=== PATIENT | female | born 1975 | race Caucasian/White ===

== ENCOUNTER → 2022-12-16 10:04 | Outpatient (CLI) | payer OTHER, SELFPAY ==
--- NOTE | ~2022-12-16 | MM_ITS ---
EXAMINATION: MM screening [facility] w rosetta HISTORY: Screening mammogram TECHNIQUE: Craniocaudal and mediolateral oblique 3-D tomosynthesis images were obtained and synthetic 2-D images were generated. CAD analysis was submitted and interpreted. COMPARISON: No prior mammogram is available for comparison at this institution. BREAST PARENCHYMAL COMPOSITION: The breasts are heterogeneously dense, which may obscure small masses . FINDINGS: There is no evidence of suspicious mass, calcification, or architectural distortion to sugg est malignancy in either breast. There has been no suspicious interval change. IMPRESSION: 1. No mammographic evidence of malignancy. 2. Recommend routine screening mammography in one year. BI-RADS Category 1: Negative Reviewed, dictated and finalized at location A.
== END ==
PROVIDERS: PCP Family Medicine; Visit Provider Obstetrics & Gynecology
DX: Z12.31 Encounter for screening mammogram for malignant neoplasm of breast (principal)
CPT/HCPCS: 77063; 77067

== ENCOUNTER 2023-05-12 10:59 | Emergency (ER) | payer OTHER, SELFPAY ==
--- NOTE | ~2023-05-12 | CT_ITS ---
EXAMINATION: CT abdomen pelvis w con DATE: 05/12/2023 12:03 INDICATION: Left lower quadrant abdominal pain TECHNIQUE: Computed tomography (CT) of the abdomen and pelvis was performed with 100 mL Omnipaque-350 intravenous contrast. Automated exposure control and iterative reconstruction technique were employe d. The dose-length product was 943.94 mGy-cm. COMPARISON: None FINDINGS: Lung bases are clear. Heart size is normal. No pericardial or pleural effusion. Couple hepatic cysts the larger measuring 1 cm. Gallbladder, spleen, pancreas, bilateral adrenal glands and kidneys are no rmal. Small bowel and appendix are normal. There are scattered colonic diverticula with inflammatory stranding surrounding a diverticulum at the distal descending colon consistent with diverticulitis. T here is a small amount of nonloculated retroperitoneal fluid tracking craniocaudally posterior to the descending colon in the lateral left pararenal space. No abscess or extraluminal gas. Trace free flu id in the cul-de-sac. Bladder is normal. The uterus is not identified and has likely been surgically resected. No pathologically enlarged abdominal or pelvic lymphadenopathy. Severe spondylosis at the l umbosacral junction with additional mild degenerative skeletal changes scattered throughout the spine and pelvis. IMPRESSION: 1. Radiographically uncomplicated diverticulitis at the distal descending colon. Reviewed, dictated and finalized at location A. IMPRESSION: 1. Radiographically uncomplicated diverticulitis at the distal descending colon .
[2023-05-12 11:01] VITALS: BP 176/116; PULSE 114; RESP 20; TEMP 36.8; O2SAT 99
[2023-05-12 11:26] LABS: Basophils Absolute Auto 0.1 K/mm3 (0.0-0.1); Basophils Percent Auto 0.4 % (0.2-1.2); Eosinophils Absolute Auto 0.4 K/mm3 (0-0.3); Eosinophils Percent Auto 2.7 % (0-4.4); Hematocrit 43.4 % (37.0-47.0); Hemoglobin 14.8 g/dL (12.0-15.0); Immature Granulocyte Absolute 0.08 K/mm3 (0.00-0.031); Immature Granulocyte Percent A 0.5 % (0-0.5); Lymphocytes Percent Auto 16.1 % (18.3-44.2); Mean Corpuscular HGB Conc 34.1 g/dl (32-36); Mean Corpuscular Hemoglobin 32.5 pg (26-34); Mean Corpuscular Volume 95.4 fl (80-100); Mean Platelet Volume 9.4 fl (7.4-10.4); Monocytes Percent Auto 6.6 % (2.6-8.5); Neutrophils Percent Auto 73.7 % (45.5-73.1); Platelet Count Result 283 k/mm3 (150-375); Red Blood Count 4.55 M/mm3 (4.2-5.4); Red Cell Distribution Width 12.2 % (11.5-14.5); White Blood Count 14.9 K/mm3 (4.5-10.0)
[2023-05-12 11:37] LABS: Alanine Aminotransferase 45 U/L (6-35); Albumin Level 4.8 g/dL (3.5-5.1); Alkaline Phosphatase 75 U/L (38-126); Anion Gap 11 mmol/L (8-16); Aspartate Amino Transferase 29 U/L (14-36); Bilirubin,Total 0.6 mg/dL (0.2-1.3); Blood Urea Nitrogen 11 mg/dL (7-17); Calcium 9.5 mg/dL (8.4-10.2); Carbon Dioxide 25 mmol/L (22-30); Chloride 101 mmol/L (98-107); Estimated CRCL calculation 99 ml/min; Estimated Glomerular Filt Rate > 60; Glucose 115 mg/dL (65-110); Lipase 58 U/L (23-300); Sodium 137 mmol/L (137-145)
[2023-05-12] MEDS: ONDANSETRON INJ 4 MG/2 ML VIAL IV PUSH (11:43)
[2023-05-12] MEDS: MORPHINE SULFATE (*CRX) 4 MG/ML INJ IV PUSH (11:43)
--- NOTE | 2023-05-12 12:05 | ED.ABDPAIN ---
HPI - Abdominal Pain General Chief Complaint: Abdominal Pain Stated Complaint: abd pain Time Seen by Provider: 05/12/23 11:21 History of Present Illness HPI narrative: Patient is a 47-year-old female who presents to the ER with left lower quadrant abdominal pain. Progressive in nature for the last 2 days. No diarrhea or sense of constipation. No nausea or vomiting. No known injury. No history of diverticulitis. No urinary frequency urgency or dysuria. Pain is worsened with physical movements and better with rest. Related Data Allergies Allergy/AdvReac Type Severity Reaction Status Date / Time cat dander Allergy Severe Hives Verified 05/12/23 11:24 dog dander Allergy Severe Rash Verified 05/12/23 11:24 Review of Systems Review of Systems: All systems reviewed & are unremarkable except as noted in HPI and below Constitutional: Constitutional: Denies chills, Denies fatigue and Denies fever(s) ENT: Denies nasal congestion and Denies sore throat Respiratory: Respiratory: Denies cough, Denies dyspnea and Denies wheezing Gastrointestinal: Gastrointestinal: Reports abdominal pain, Denies constipation, Denies diarrhea, Denies nausea and Denies vomiting Genitourinary: Genitourinary: Reports no additional female genitourinary complaints Musculoskeletal: Musculoskeletal: Reports no additional musculoskeletal complaints PMF Past Medical History Medical History BMI 30.0-30.9,adult BMI 31.0-31.9,adult BMI 33.0-33.9,adult COVID-19 Screening for breast cancer Surgical History Surgical History History of hysterectomy (~04/23/04) Family History Family History Grandparent Hypertension Alcohol abuse Father Blind Alcohol abuse Mother Lung cancer Hypertension Alcohol abuse Sibling Hypertension Social History Social History Smoking packs per day: 0.5 Smoking cigarettes per day: 10.0 Years smoked: 28 Smoking pack-years: 14.00 Smoking status: Current every day smoker Tobacco type: cigarettes (1/2 -1 ppd using nicotine lozenges to try to quit) Second hand tobacco smoke exposure: Yes Alcohol intake: current Drinks per week: 2 Substance use: never Substance use type: does not use Living arrangements: with family Additional living arrangements comments: donell Occupation/Education: occupation 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 HEAD: Normocephalic, atraumatic. ENT: Mucous membranes moist. CHEST: Clear to auscultation. No respiratory distress. HEART: Regular rate and rhythm. Normal peripheral pulses. ABDOMEN: Soft, left lower quadrant tenderness with guarding, nondistended, normal active bowel sounds. EXTREMITIES: Normal range of motion. No edema. SKIN: Warm, dry, no rash. NEURO: N Alert and oriented x3. PSYCH: Normal mood and affect. Course Course Emergency Course: Patient resting comfortably. Educated on lab and imaging results. Discussed outpatient treatment plan with oral antibiotics. Symptoms felt to be related to diverticulitis and not her urine specimen but antibiotic should be able to help treat that as well. Vital Signs Vital signs: Vital Signs Temperature 98.3 F 05/12/23 11:01 Pulse Rate 114 H 05/12/23 11:01 Respiratory Rate 20 05/12/23 11:01 Blood Pressure 176/116 H 05/12/23 11:01 Pulse Oximetry 99 05/12/23 11:01 Oxygen Delivery Room Air 05/12/23 11:01 Temperature 98.3 F 05/12/23 11:01 Pulse Ra
[2023-05-12 12:18] LABS: Appearance Urine Cloudy (Clear); Bacteria Urine 4+ /hpf; Bilirubin Urine Negative (Negative); Blood Urine Negative (Negative); Color Urine Yellow (Yellow); Glucose Urine UA Negative (Negative); Ketones Urine Negative (Negative); Leukocyte Esterase Ur Negative LEU/UL (Negative); Need Manual Microscopic Reviewed; Nitrate Urine Negative (Negative); Protein Urine Negative (Negative); RBC Urine 0-2 /hpf (0-2); Specific Grav Ur 1.017 (1.001-1.035); Squamous Epithelial Cell Urine Occasional /hpf (Few); Urobilinogen Urine 0.2 mg/dL (<2.0)
[2023-05-12 12:20] LABS: Add Urine Microscopic? YES
== END 2023-05-12 13:42 | disposition home or self-care (01) ==
PROVIDERS: Emergency Provider Emergency Medicine; PCP Family Medicine
DX: K57.32 Diverticulitis of large intestine without perforation or abscess without bleeding (principal); F17.210 Nicotine dependence, cigarettes, uncomplicated; Z86.16 Personal history of COVID-19; Z90.710 Acquired absence of both cervix and uterus
CPT/HCPCS: 36415; 74177; 80053; 81001; 83690; 85025; 87086; 96374; 96375; 99284; J2270; J2405; Q9967

== ENCOUNTER 2023-07-19 01:37 | Day surgery (SDC) | payer OTHER, SELFPAY ==
[2023-06-23 14:23] VITALS: BMI 34.1
--- NOTE | 2023-07-02 10:12 | SUR.PREOP ---
Patient called regarding upcoming procedure. Message left on patient's voicemail regarding preop instructions, appointment times, and procedure prep.
--- NOTE | 2023-07-14 09:29 | SUR.PREOP ---
Patient called regarding upcoming procedure. Message left of the patient's voicemail regarding preop instructions, appointment times, and procedure prep.
[2023-07-19 07:14] VITALS: BP 150/87; PULSE 90; RESP 18; TEMP 36.1; O2SAT 98
[2023-07-19] MEDS: LACTATED RINGERS 1,000 ML 150 ML IV CONT (07:25)
--- NOTE | 2023-07-19 08:21 | PM.HPGS ---
History of Present Illness History of Present Illness Consent: Risks, benefits, and alternatives have been discussed and questions answered. Patient agrees to proceed with procedure. Chief complaint: Diverticulitis Narrative: August Franklin is a 47 year old female with h/o diverticulitis treated medically, never had colonoscopy Review of Systems Constitutional: Constitutional: Denies headache(s) and Denies weakness Eyes: Eyes: Denies blurry vision ENT: Reports Normal hearing present, Denies headache(s) and Denies neck pain Cardiovascular: Cardiovascular: Denies chest pain and Denies dyspnea Respiratory: Respiratory: Denies dyspnea Gastrointestinal: Gastrointestinal: Reports no additional gastrointestinal complaints Genitourinary: Genitourinary: Denies dysuria Musculoskeletal: Musculoskeletal: Denies neck pain Integumentary/Breasts: Skin/Breast: Denies dry skin Neurologic: Reports Normal hearing present, Denies headache(s) and Denies weakness Psychiatric: Psychiatric: Denies anxiety Endocrine: Endocrine: Denies change in body appearance Hematologic/Lymphatic: Hematologic/Lymphatic: Denies easy bleeding Allergic/Immunologic: Allergic/Immunologic: Denies urticaria PMFSH Past Medical History Medical History (Updated 07/19/23 @ 08:22 by Vazquez Damon MD) BMI 34.0-34.9,adult COVID-19 History of diverticulitis Screening for breast cancer Surgical History Surgical History History of hysterectomy (~04/23/04) Family History Family History Grandparent Hypertension Alcohol abuse Father Blind Alcohol abuse Mother Lung cancer Hypertension Alcohol abuse Sibling Hypertension Social History Social History Smoking packs per day: 0.5 Smoking cigarettes per day: 10.0 Years smoked: 20 Smoking pack-years: 10.00 Smoking status: Current every day smoker Tobacco type: cigarettes Second hand tobacco smoke exposure: Yes Alcohol intake: current Drinks per week: 2 Alcohol use details: DRINKS Substance use: never Substance use type: does not use Living arrangements: with family Additional living arrangements comments: donell Occupation/Education: occupation 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 Gender identity (if verbalized by the patient): Female Sexual Orientation (if Verbalized by the Patient): Straight or Heterosexual Spiritual care concerns: No Agree to blood products: Yes Meds Home Medications and Allergies Home Medications Medication Instructions Recorded Confirmed Type ondansetron 4 mg disintegrating 4 mg PO Q6H PRN nausea and 05/12/23 07/12/23 Rx tablet vomiting #10 tabs tizanidine 4 mg tablet 4 mg PO QHS PRN muscle spasticity 05/17/23 07/12/23 Rx #30 tabs ixekizumab 80 mg/mL subcutaneous 80 mg subcut MONTHLY 06/23/23 07/12/23 History auto-injector (Confabbtz Autoinjector (2 Pack)) zolpidem 5 mg tablet (Ambien) 5 mg PO QHS PRN insomnia #30 tabs 06/30/23 07/12/23 Rx Allergies Allergy/AdvReac Type Severity Reaction Status Date / Time cat dander Allergy Severe Hives Verified 07/19/23 07:09 dog dander Allergy Severe Rash Verified 07/19/23 07:09 BANDAID TAPE Allergy Intermediate Swelling Uncoded 07/19/23 07:09 Vital Signs Vital Signs - 24 hr 07/19/23 07:14 Temperature 97 F L Pulse Rate 90 Respiratory Rate 18 Blood Pressure 150/87 H Pulse Oximetry 98 Oxygen Delivery Room Air Exam Const: General: comfortable and no acute distress HENMT: Face/Nose/Sinus: Normal nares present Eyes: General: appearance normal, both eyes and all related structures Neck: Neck: no JVD Resp: Auscultation: clear to auscultation bilaterally Cardio: Rate: regular rate Rhythm: regular rhythm GI: Inspection: non-distended GI Pa
[2023-07-19 08:42] VITALS: BP 128/91; PULSE 78; RESP 19; O2SAT 98
[2023-07-19 08:52] VITALS: BP 130/85; PULSE 68; RESP 18; O2SAT 99
[2023-07-19 09:02] VITALS: BP 139/90; PULSE 68; RESP 20; O2SAT 97
== END 2023-07-19 09:07 | disposition home or self-care (01) ==
PROVIDERS: PCP Family Medicine; Visit Provider Internal Medicine Gastroenterology
PROC: 0DJD8ZZ Inspection of Lower Intestinal Tract, Via Natural or Artificial Opening Endoscopic (ICD-10-PCS; CPT 45378; principal; 2023-07-19 08:30)
DX: Z12.11 Encounter for screening for malignant neoplasm of colon (principal); K57.30 Diverticulosis of large intestine without perforation or abscess without bleeding; K64.8 Other hemorrhoids; Z87.19 Personal history of other diseases of the digestive system; F17.210 Nicotine dependence, cigarettes, uncomplicated; F10.90 Alcohol use, unspecified, uncomplicated
CPT/HCPCS: 45378; J2001; J2704; J7120

== ENCOUNTER 2025-04-10 15:14 | Outpatient (CLI) | payer BC, SELFPAY ==
--- NOTE | ~2025-04-10 | MM_ITS ---
EXAMINATION: MM screening [facility] BI w rosetta HISTORY: Screening mammogram TECHNIQUE: Craniocaudal and mediolateral oblique 3-D tomosynthesis images were obtained and synthetic 2-D images were generated. CAD analysis was submitted and interpreted. COMPARISON: 12/16/2022 BREAST PARENCHYMAL COMPOSITION:Not Dense. There are scattered areas of fibroglandular density. FINDINGS: Possible 6 mm obscured mass at the upper, outer left breast. Stable parenchymal appearance of the right breast. No suspicious microcalcifications. IMPRESSION: Possible 6 mm obscured mass at the upper, outer left breast. Spot compression views and possibly ultrasound are recommended for further evaluation. BI-RADS Category 0: Incomplete: Needs additional imaging evaluation. Reviewed, dictated and finalized at [facility]. IMPRESSION: Possible 6 mm obscured mass at the upper, outer left breast. Spot compression v iews and possibly ultrasound are recommended for further evaluation. BI-RADS Category 0: Incomplete: Needs additional imaging evaluation.
== END 2025-04-10 15:15 | disposition home or self-care (01) ==
PROVIDERS: PCP Family Medicine; Visit Provider Obstetrics & Gynecology
DX: Z12.31 Encounter for screening mammogram for malignant neoplasm of breast (principal); R92.8 Other abnormal and inconclusive findings on diagnostic imaging of breast
CPT/HCPCS: 77063; 77067

== ENCOUNTER 2025-04-30 11:07 | Outpatient (CLI) | payer BC, SELFPAY ==
--- NOTE | ~2025-04-30 | XR_ITS ---
EXAMINATION:XR_[id number]_CR DATE: 04/30/2025 11:40 INDICATION: Neck pain TECHNIQUE: AP, lateral, lateral swimmers and odontoid views of the cervical spine are provided. COMPARISON: None FINDINGS: Mild reversal of the normal cervical lordosis. Odontoid is intact. Mild atlantoaxial osteoarthritis. Vertebral body heights are normal. Moderate disc height loss at C5-C6, mild to moderate disc height loss at C4-C5 and mild disc height loss at C6-C7. There is multilevel mild cervical facet and uncovertebral osteoarthritis. Prevertebral soft tissues are normal. Visualized apices of lungs are clear. IMPRESSION: 1. Mild to moderate lower cervical spondylosis. Reviewed, dictated and finalized at location A.
== END 2025-04-30 11:08 | disposition home or self-care (01) ==
LOC: MICIMG 11:09
PROVIDERS: PCP Family Medicine; Visit Provider Nurse Practitioner Family
DX: M47.892 Other spondylosis, cervical region (principal)
CPT/HCPCS: 72040

== ENCOUNTER 2025-05-04 12:42 | Outpatient (CLI) | payer BC, SELFPAY ==
--- NOTE | ~2025-05-04 | MMUS_ITS ---
EXAMINATION: MM diagnostic [facility] LT w rosetta, US breast LT limited INDICATION: 49-year old female; BI-RADS 0, callback to evaluate Left breast focal asymmetry COMPARISON: 04/10/2025 TECHNIQUE: Digital breast tomosynthesis True lateral and spot compression CC and MLO views of the LEFT breast were obtained with computer-aided detection to assist in interpretation of the study. FINDINGS: There are scattered areas of fibroglandular density. The focal asymmetry of concern in the upper outer left breast partially persists. No well-defined mass seen. Ultrasound was performed for further evaluation. LEFT BREAST ULTRASOUND FINDINGS: Targeted evaluation of the area of concern in the upper outer quadrant was completed. At 12:00, 4 cm from the nipple there is a parallel hypoechoic mass with circumscribed margins that measure 0.9 x 0.9 x 0.2 cm. This finding is considered probably benign and short-term follow-up recommended. At 2:00, 4 cm from the nipple there is a 0.6 cm cyst. At 3:00, 6 cm from the nipple there is a 0.6 cm simple cyst. There is no sonographic finding that correlates to the area of concern on the mammogram. IMPRESSION: 1. Probable Benign LEFT breast mass at 12:00 location. Short-term follow-up recommended. 2. Probably benign left breast correlates asymmetry with No definite sonographic correlates. RECOMMENDATION: 6 month follow-up diagnostic LEFT mammogram and LEFT breast ultrasound. BI-RADS 3, PROBABLY BENIGN Reviewed, dictated and finalized at location B. IMPRESSION: 1. Probable Benign LEFT breast mass at 12:00 location. Short-term follow-up rec ommended. 2. Probably benign left breast correlates asymmetry with No definite sonographi c correlates. RECOMMENDATION: 6 month follow-up diagnostic LEFT mammogram and LEFT breast ultrasound. BI-RADS 3, PROBABLY BENIGN
--- OUTSIDE RECORDS SUMMARY | 2025-05-04 13:23 | XMS_ITS | Clinical Summary ---
Author Organization [facility] Address [address] [place] [address] Care Team Providers Care Plow Shaker Name Role Phone Unavailable Primary Care Provider Unavailabl e Source Comments [facility],non-owned Affiliates and Associated Physician Practices is amultiple site organization consisting of ambulatory clinics and hospital sitesin [place], [place], [place] and [place]. This disclosure is being madepursuant to the Care Everywhere program and may not contain all information available regarding this patient. Last updated 18.[facility] Allergies Active Allergy Reactions Criticality Noted Date Comments Adhesive Sensitivity Swelling 01/30/2019 Redness Medications * Be aware that medications may not be up to date on this document. Alwaysverify current medications with the patient. zolpidem (AMBIEN) 5 MG tablet Take 5 mg by mouth nightly as needed for Insomnia Active sertraline (ZOLOFT) 50 MG tablet Take 50 mg by mouth once daily Active Social History Tobacco Use Types Packs/Day Years Used Date Smoking Tobacco: Every Day Smokeless Tobacco: Never Tobacco Cessation:Ready to Q uit: Yes Comments:Primary doctor discussing options for quiting. 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 Gender Identity Not on file Sexual Orientation Not on file Last Filed Vital Signs Vital Sign Reading Time Taken Comments Blood Pressure 126/88 01/30/2019 2:09 PM CDT Pulse 87 01/30/2019 2:09 PM CDT Temperature 37.1 C (98.7 F) 01/30/2019 2:09 PM CDT Respiratory Rate 16 01/30/2019 2:09 PM CDT Oxygen Saturation 98% 01/30/2019 2:09 PM CDT Inhaled Oxygen Concentration - - Weight 86.6 kg (191 lb) 01/30/2019 2:09 PM CDT Height 167.6 cm (5' 6) 01/30/2019 2:09 PM CDT Body Mass Index 30.83 01/30/2019 2:09 PM CDT Plan of Treatment Health Maintenance Due Date Last Done Comments COLOGUARD (AGES 45-75) - COL ON CA SCREENING 1975 COLON MONITORING 1975 COLONOSCOPY - COLON CA SCREENING 1975 CT COLONOGRAPHY - COLON CA SCREENING 1975 Colorectal Cancer Screening 1975 FIT - COLON CA SCREENING 1975 FLEX SIG - COLON CA SCREENING 1975 LIPID TESTING 1975 MAMMOGRAM 1975 HIV SCREENING 1990 HEPATITIS C SCREENING 08/12/1993 DTAP/TDAP/TD VACCINES (1 - Tdap) 1994 HEPATITIS B VACCINE (1 of 3 - 19+ 3-dose series) 1994 SCREENING FOR DIABETES 01/30/2019 DEPRESSION SCREENING 08/23/2024 COVID-19 VACCINE (1 - 2023-2 5 season) 2025 INFLUENZA VACCINE (#1) 2025 ZOSTER VACCINE (1 of 2) 2025 HIB VACCINE Aged Out No longer eligi ble based on patient's age to complete this topic HPV VACCINE Aged Out No longer eligi ble based on patient's age to complete this topic MENINGOCOCCAL (Group B) VACC INE SHARED DECISION-MAKING Aged Out No longer eligibl e based on patient's age to complete this topic MENINGOCOCCAL GROUPS A/C/Y/W VACCINE Aged Out No longer eligible b ased on patient's age to complete this topic Insurance [employer]
== END 2025-05-04 12:43 | disposition home or self-care (01) ==
LOC: ANHFOHIMG 12:43
PROVIDERS: PCP Family Medicine; Visit Provider Obstetrics & Gynecology
DX: N63.20 Unspecified lump in the left breast, unspecified quadrant (principal); R92.8 Other abnormal and inconclusive findings on diagnostic imaging of breast
CPT/HCPCS: 76642; 77061; 77065; G0279